=== PATIENT | male | born 1985 | race Caucasian/White ===

== ENCOUNTER 2021-07-14 16:27 | Emergency (ER) | payer OTHER ==
[~2021-07-14] VITALS: Ht 185.4 cm; Wt 131.5 kg
[2021-07-14 17:28] VITALS: BP 148/82
--- NOTE | 2021-07-14 17:32 | NUR ---
Patient came to ER for evaluation and treatment of hives x3 days No reported fever
[2021-07-14] MEDS ORDERED: diphenhydrAMINE HCL 50 MG/ML VIAL IM ONE (18:00)
[2021-07-14] MEDS ORDERED: FAMOTIDINE (20 MG) 20 MG TABLET PO ONE (18:00)
[2021-07-14] MEDS ORDERED: predniSONE 20 MG TABLET PO ONE (18:00)
[2021-07-14] MEDS ORDERED: predniSONE 20 MG TABLET ONE (18:38)
[2021-07-14] MEDS ORDERED: diphenhydrAMINE HCL 50 MG/ML VIAL ONE (18:38)
[2021-07-14] MEDS ORDERED: FAMOTIDINE (20 MG) 20 MG TABLET ONE (18:38)
--- NOTE | 2021-07-14 18:49 | NUR ---
PATIENT MEDICATED PER STEPHANIE KEITH ORDERED.
[2021-07-14] MEDS ORDERED: DIPH25TA22 PO (19:40)
[2021-07-14] MEDS ORDERED: PRED20TA PO (19:40)
--- NOTE | 2021-07-14 19:43 | NUR ---
Patient discharged to home in stable condition. Rx and Written and verbal after care instructions given. Patient verbalizes understanding of instruction.
== END 2021-07-14 19:43 | disposition home or self-care (01) ==
LOC: ER 18:21
DX: L50.9 Urticaria, unspecified (principal); F17.200 Nicotine dependence, unspecified, uncomplicated; Z98.890 Other specified postprocedural states; Z79.899 Other long term (current) drug therapy
CPT/HCPCS: 96372; 99283; J1200; J7512